=== PATIENT | male | born 1965 | race Caucasian/White ===

== ENCOUNTER 2021-11-17 08:36 | Day surgery (SDC) | payer BC ==
[~2021-11-17] VITALS: Ht 188 cm; Wt 122.4 kg
[2021-11-17] MEDS ORDERED: SYNTHROID0.125 MG/T PO (08:58)
[2021-11-17] MEDS ORDERED: ZOCOR 40MG40 MG PO (08:59)
[2021-11-17 09:13] VITALS: BP 121/86; PULSE 68; TEMP 98.1
[2021-11-17 10:25] VITALS: BP 123/82; PULSE 81; TEMP 97
--- NOTE | 2021-11-17 10:25 | NUR ---
Pt arrived from procedure and was settled by Natalia ABRAHAM. Verbal report obtained in [place]. Buttered wheat toast and applejuice provided per pt request. Vitals obtained. Visitor present. Call berger is within reach on side table.
[2021-11-17 10:40] VITALS: BP 125/75; PULSE 70
--- NOTE | 2021-11-17 10:40 | NUR ---
Pt is tolerating his food and drink. Denies nausea. No vomiting. Vitals obtained. Pt expressed desire to be discharged.
[2021-11-17 10:55] VITALS: BP 141/85; PULSE 69
--- NOTE | 2021-11-17 10:55 | NUR ---
Vitals obtained. Call berger remains within reach..
--- NOTE | 2021-11-17 11:05 | NUR ---
Dc instructions and eduational material reviewed with the pt and visitor, both verbalized understanding and the pt signed the realted paperwork. IV discontinued. Catheter tip intact. Pressure bandage applied. No redness or swelling noted. Pt denied needing assistance changing into personal clothes and verbalized will use call berger when done changing. Call berger is within reach on side table.
--- NOTE | 2021-11-17 11:35 | NUR ---
Pt dismissed from endo via wheelchair to the Pt entrence by Elissa ABRAHAM. Pt has personal belongings and DC packet and was transferred into the care of his , who is present to drive.
== END 2021-11-17 11:35 | disposition home or self-care (01) ==
LOC: SDCO 08:36
DX: R19.5 Other fecal abnormalities (principal); K21.9 Gastro-esophageal reflux disease without esophagitis
CPT/HCPCS: J2704; J7030